=== PATIENT | female | born 1970 | race Two or more races ===

== ENCOUNTER 2021-10-11 14:10 | Emergency (ER) | payer OTHER ==
[2021-10-11 14:32] VITALS: TEMP 98.2; BMI 28.6
[2021-10-11] MEDS ORDERED: ACETAMINOPHEN 325 MG TABLET (FP) PO ONE (14:33)
[2021-10-11 15:10] LABS: HEMATOCRIT 36.9 % (32.4-45.2); HEMOGLOBIN 12.8 G/dL (10.7-15.3); MCH 29.8 pg (25.7-33.7); MCHC 34.6 g/dl (32.0-36.0); MEAN CELL VOLUME 86.3 fl (80-96); MEAN PLT VOLUME 7.8 fl (7.5-11.1); PLATELET COUNT 293.7 10^3/uL (134-434); RBC 4.28 10^6/uL (3.60-5.2); RDW 14.5 % (11.6-15.6); WHITE BLOOD COUNT 4.5 10^3/uL (4.0-10.8)
[2021-10-11 15:16] LABS: ALBUMIN 3.7 g/dl (3.4-5.0); BILIRUBIN,TOTAL 0.6 mg/dl (0.2-1); CALCIUM 8.9 mg/dl (8.5-10); CREATININE 1.1 mg/dl (0.55-1.3)
[2021-10-11 15:47] LABS: PLATELET ESTIMATE ADEQUATE
[2021-10-11 16:20] VITALS: BP 126/85; PULSE 73
== END 2021-10-11 17:25 | disposition home or self-care (01) ==
LOC: FER 14:10
DX: U07.1 COVID-19 (principal); R07.9 Chest pain, unspecified
CPT/HCPCS: 36415; 71045-TC-FY; 80053; 84484; 85025; 93005; 99285-25

== ENCOUNTER 2021-10-14 15:52 | Emergency (ER) | payer OTHER ==
[2021-10-14 16:19] VITALS: BP 122/82; PULSE 80; TEMP 98.1; BMI 28.6
[2021-10-14 16:44] LABS: CREATININE 0.8 mg/dl (0.55-1.3); TOT PROT 7.3 g/dl (6.4-8.2)
[2021-10-14 16:51] LABS: HEMOGLOBIN 13.5 G/dL (10.7-15.3); MCHC 34.5 g/dl (32.0-36.0); MEAN CELL VOLUME 86.8 fl (80-96); MEAN PLT VOLUME 7.8 fl (7.5-11.1); RBC 4.49 10^6/uL (3.60-5.2); RDW 14.7 % (11.6-15.6)
[2021-10-14 18:08] LABS: PLATELET ESTIMATE ADEQUATE
== END 2021-10-14 20:18 | disposition home or self-care (01) ==
LOC: FER 15:52
DX: U07.1 COVID-19 (principal); R07.89 Other chest pain
CPT/HCPCS: 36415; 80053; 84484; 85027; 85379; 93005; 99284-25